=== PATIENT | female | born 1935 | race Caucasian/White ===

== ENCOUNTER 2018-09-20 22:55 | Emergency (ER) | payer MEDICARE, BC ==
[2018-09-20 23:07] VITALS: BP 174/87
[2018-09-21] LABS: ANION GAP 15.3; CHLORIDE,CL 101 mmol/L (101-111); SODIUM,NA 135 mmol/L (135-145)
--- NOTE | 2018-09-21 00:46 | EDM.PDOC ---
ED HPI GENERAL MEDICAL PROBLEM - General Chief Complaint: Cardiovascular Problem Stated Complaint: [id number] BP IS HIGH Time Seen by Provider: 09/20/18 23:10 Source of Information: Reports: Patient History Limitations: Reports: No Limitations - History of Present Illness INITIAL COMMENTS - FREE TEXT/NARRATIVE: ED for eval as BP high at home and dizzy. Notes hx of chronic dizziness, not changed tonight, No weakness, no blurred vision or headache. Has been on BP meds in past and were stopped as BP getting to low. Stated usual BP in 120/s Recent f/u echo. Cardiology appointment scheduled for Thursday 09/21 in for routine visit. - Related Data Allergies Allergy/AdvReac Type Severity Reaction Status Date / Time amoxicillin Allergy Stomach Verified 09/20/18 23:01 Upset Home Meds: Home Meds Balsalazide Disodium 3 tab PO TID 02/02/15 [History] Fluticasone Propionate [Flonase] 1 spray INH ASDIRECTED 02/02/15 [History] Pantoprazole [ProTONIX] 40 mg PO DAILY 02/02/15 [History] Simvastatin 10 mg PO DAILY 02/02/15 [History] Past Medical History HEENT History: Reports: Impaired Vision Cardiovascular History: Reports: Syncope Respiratory History: Reports: Asthma Gastrointestinal History: Reports: GERD, Other (See Below) Other Gastrointestinal History: colitis 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 ED EXAM, GENERAL - Physical Exam Exam: See Below Exam Limited By: No Limitations General Appearance: Alert, Anxious Eye Exam: Bilateral Eye: EOMI Ears: Normal External Exam, Normal TMs Nose: Normal Inspection Throat/Mouth: Normal Inspection, Normal Voice Head: Atraumatic, Normocephalic Neck: Normal Inspection, Full Range of Motion Respiratory/Chest: No Respiratory Distress Cardiovascular: Normal Peripheral Pulses, Regular Rate, Rhythm, Tachycardia (120 's with minimal activity. Decrease to mid 90's to 100 at rest.). No: Systolic Murmur Peripheral Pulses: 2+: Dorsalis Pedis (R) GI/Abdominal: Normal Bowel Sounds Back Exam: Normal Inspection Extremities: Normal Inspection, Normal Range of Motion. No: Pedal Edema Neurological: Alert, Oriented, Normal Cognition, No Motor/Sensory Deficits Psychiatric: Normal Affect, Anxious Skin Exam: Warm, Dry, Intact, Normal Color Course - Vital Signs Last Recorded V/S: Last Vital Signs Temp 97.9 F 09/20/18 23:06 Pulse 111 H 09/20/18 23:06 Resp 16 09/20/18 23:06 BP 174/87 H 09/20/18 23:06 Pulse Ox 97 09/20/18 23:06 - Orders/Labs/Meds Labs: Laboratory Tests 09/20/18 09/20/18 Range/Units 23:35 23:35 WBC 6.7 (5.0-10.0) 10^3/uL RBC 4.52 (4.2-5.4) 10^6/uL Hgb 12.7 (12.0-16.0) g/dL Hct 38.9 (37.0-47.0) % MCV 86.1 (80-100) fL MCH 28.1 (27.0-34.0) pg MCHC 32.6 L (33.0-35.0) g/dL Plt Count 182 (150-450) 10^3/uL Neut % (Auto) 66.0 (42.2-75.2) % Lymph % (Auto) 25.3 (20.5-50.1) % [place] % (Auto) 6.6 (2-8) % Eos % (Auto) 1.5 (1.0-3.0) % Baso % (Auto) 0.6 (0.0-1.0) % Sodium 135 (135-145) mmol/L Potassium 3.3 L (3.6-5.0) mmol/L Chloride 101 (101-111) mmol/L Carbon Dioxide 22.0 (21.0-31.0) mmol/L Anion Gap 15.3 BUN 15 (7-18) mg/dL Creatinine 0.7 (0.6-1.3) mg/dL Est Cr Clr Drug Dosing 45.27 mL/min Estimated GFR (MDRD) > 60 BUN/Creatinine Ratio 21.42 Glucose 142 H (74-105) mg/dL Calcium 9.1 (8.4-10.2) mg/dl Total Bilirubin 0.7 (0.2-1.0) mg/dL AST 28 (10-42) IU/L ALT 15 (10-60) IU/L Alkaline Phosphatase 80 (42-121) IU/L Troponin I < 0.02 (0.00-0.02) ng/ml B-Natriuretic Peptide 58 (0-100) pg/ml Total Protein 7.1 (6.7-8.2) g/dl Albumin 3.8 (3.2-5.5) g/dl Globulin 3.3 Albumin/Globulin Ratio 1.15 - Re-Assessments/Exams Free Text/Narrative Re-Assessment/Exam: BP [id number]'s systolic. Cardiology appointment later this am. . Departure - Departure Time of Disposition: 00:43 Disposition: Home, Self-Care 01 Condition: Good Clinical Impression: Anxiety Hypertensive heart disease Qualifiers: Heart failure presence: without heart failure Qualified Code(s): I11.9 - Hypertensive heart disease without heart failure Instructions: Hypertension, [id number] Referrals: PCP,Unobtain [Primary Care Provider] - Forms: ED Department Discharge Additional Instructions: Rest, light activity Follow up with cardiology as scheduled Urgent follow up if weakness, difficulty speaking, or chest pain Continue usual home medications
== END 2018-09-21 00:55 | disposition home or self-care (01) ==
LOC: DL.ED 22:55
DX: I11.9 Hypertensive heart disease without heart failure (principal); F41.9 Anxiety disorder, unspecified; J45.909 Unspecified asthma, uncomplicated; Z88.1 Allergy status to other antibiotic agents; Z79.899 Other long term (current) drug therapy
CPT/HCPCS: 36415; 71045; 80053; 83880; 84484; 85025; 93005; 99283

== ENCOUNTER 2018-10-10 15:28 | Emergency (ER) | payer MEDICARE, BC ==
[2018-10-10 15:39] VITALS: BP 162/82
[2018-10-10 17:00] LABS: ANION GAP 16.7; CHLORIDE,CL 98 mmol/L (101-111); SODIUM,NA 135 mmol/L (135-145)
--- NOTE | 2018-10-10 17:07 | CR ---
Clinical history: 83-year-old female complaining of chest pain (recent chest radiograph 09/20/2018 read as "no acute findings"). INDICATION: Less than optimal inspiratory effort crowding and accentuating lung markings but... * no new lung mass, hilar lymphadenopathy or focal lobar pneumonia identified in the interval since 20 September 2018. Normal cardiac silhouette without cephalization of flow and new signs of alveolar edema or dependent pleural fluid accumulation. No new lung mass, hilar lymphadenopathy or focal lobar pneumonia. 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 No pneumothorax or free subdiaphragmatic air. CONCLUSION: No acute new cardiopulmonary abnormality.
--- NOTE | 2018-10-10 17:23 | EDM.PDOC ---
ED HPI GENERAL MEDICAL PROBLEM - General Chief Complaint: General Stated Complaint: CHEST PAIN, HIGH BLOOD PRESSURE Time Seen by Provider: 10/10/18 15:45 Source of Information: Reports: Patient, Family, RN, RN Notes Reviewed History Limitations: Reports: No Limitations - History of Present Illness INITIAL COMMENTS - FREE TEXT/NARRATIVE: Pt to ER with her son with c/o dizziness. She states she has been having some dizziness for the past week or so. She has had it in the past at times, but has been worse the past week. She states she was recently started on Sertraline on . Patient denies chest pain, fever, chills, SOB, N/V/D, urinary symptoms. Patient admits to some blurred vision at times. Onset: Gradual - Related Data Allergies Allergy/AdvReac Type Severity Reaction Status Date / Time amoxicillin Allergy Stomach Verified 10/10/18 15:32 Upset Home Meds: Home Meds Balsalazide Disodium 3 tab PO TID 02/02/15 [History] Fluticasone Propionate [Flonase] 1 spray INH ASDIRECTED 02/02/15 [History] Pantoprazole [ProTONIX] 40 mg PO DAILY 02/02/15 [History] Simvastatin 10 mg PO DAILY 02/02/15 [History] Sertraline HCl 25 mg PO DAILY 10/10/18 [History] Past Medical History HEENT History: Reports: Impaired Vision Cardiovascular History: Reports: Syncope Respiratory History: Reports: Asthma Gastrointestinal History: Reports: GERD, Other (See Below) Other Gastrointestinal History: colitis Genitourinary History: Reports: None 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: Musculoskeletal History: Reports: Back Pain, Chronic, Neck Pain, Chronic, Osteoporosis Neurological History: Reports: None Psychiatric History: Reports: Anxiety Endocrine/Metabolic History: Reports: None Hematologic History: Reports: None Immunologic History: Reports: None Oncologic (Cancer) History: Reports: None Dermatologic History: Reports: None - Infectious Disease History Infectious Disease History: Reports: None - Past Surgical History Head Surgeries/Procedures: Reports: None Musculoskeletal Surgical History: Reports: Hip Replacement Social & Family History - Family History Family Medical History: Noncontributory - Tobacco Use Smoking Status *Q: Never Smoker Second Hand Smoke Exposure: No - Caffeine Use Caffeine Use: Reports: Coffee, Tea - Recreational Drug Use Recreational Drug Use: No - Living Situation & Occupation Living situation: Reports: , with Spouse Occupation: Retired ED ROS GENERAL - Review of Systems Review Of Systems: ROS reveals no pertinent complaints other than HPI. ED EXAM, GENERAL - Physical Exam Exam: See Below Exam Limited By: No Limitations General Appearance: Alert, WD/WN, No Apparent Distress Eye Exam: Bilateral Eye: EOMI, Normal Inspection Ears: Normal External Exam, Normal Canal, Hearing Grossly Normal, Normal TMs Nose: Normal Inspection Throat/Mouth: Normal Inspection, Normal Voice, No Airway Compromise Head: Atraumatic, Normocephalic Neck: Normal Inspection, Supple, Non-Tender, Full Range of Motion Respiratory/Chest: No Respiratory Distress, Chest Non-Tender, Decreased Breath Sounds Cardiovascular: Normal Peripheral Pulses, Regular Rate, Rhythm, No Edema, No Gallop, No JVD, No Murmur, No Rub Peripheral Pulses: 2+: Radial (L), Radial (R) GI/Abdominal: Normal Bowel Sounds, Soft, Non-Tender (Female) Exam: Deferred Rectal (Female) Exam: Deferred Back Exam: Normal Inspection, Decreased Range of Motion Extremities: Normal Inspection, Normal Range of Motion, Non-Tender, No Pedal Edema, Normal Capillary Refill Neurological: Alert, Oriented, CN II-XII Intact, Normal Cognition, Normal Gait, Normal Reflexes, No Motor/Sensory Deficits Psychiatric: Normal Mood, Flat Affect Skin Exam: Warm, Dry, Intact, Normal Color, No Rash Lymphatic: No Adenopathy Course - Vital Signs Last Recorded V/S: Last Vital Signs Temp 97.8 F 10/10/18 15:34 Pulse 125 H 10/10/18 15:34 Resp 16 10/10/18 15:34 BP 162/82 H 10/10/18 15:34 Pulse Ox 100 10/10/18 15:34 - Orders/Labs/Meds Orders: Active Orders 24 hr Category Date Time Status EKG Documentation Completion [RC] STAT Care 10/10/18 16:16 Active CULTURE URINE [RM] Stat Lab 10/10/18 17:20 Received Labs: Laboratory Tests 10/10/18 10/10/18 10/10/18 Range/Units 16:33 16:33 17:20 WBC 5.6 (5.0-10.0) 10^3/uL RBC 4.71 (4.2-5.4) 10^6/uL Hgb 13.2 (12.0-16.0) g/dL Hct 40.5 (37.0-47.0) % MCV 86.0 (80-100) fL MCH 28.0 (27.0-34.0) pg MCHC 32.6 L (33.0-35.0) g/dL Plt Count 228 (150-450) 10^3/uL Neut % (Auto) 66.5 (42.2-75.2) % Lymph % (Auto) 23.6 (20.5-50.1) % [place] % (Auto) 7.7 (2-8) % Eos % (Auto) 1.1 (1.0-3.0) % Baso % (Auto) 1.1 H (0.0-1.0) % Sodium 135 (135-145) mmol/L Potassium 3.7 (3.6-5.0) mmol/L Chloride 98 L (101-111) mmol/L Carbon Dioxide 24.0 (21.0-31.0) mmol/L Anion Gap 16.7 BUN 15 (7-18) mg/dL Creatinine 0.7 (0.6-1.3) mg/dL Est Cr Clr Drug Dosing 45.27 mL/min Estimated GFR (MDRD) > 60 BUN/Creatinine Ratio 21.42 Glucose 129 H (74-105) mg/dL Calcium 9.0 (8.4-10.2) mg/dl Total Bilirubin 0.6 (0.2-1.0) mg/dL AST 26 (10-42) IU/L ALT 13 (10-60) IU/L Alkaline Phosphatase 78 (42-121) IU/L Troponin I < 0.02 (0.00-0.02) ng/ml Total Protein 7.4 (6.7-8.2) g/dl Albumin 3.8 (3.2-5.5) g/dl Globulin 3.6 Albumin/Globulin Ratio 1.06 Urine Color Yellow (YELLOW) Urine Appearance Slightly cloudy (CLEAR) Urine pH 7.0 (5.0-9.0) Ur Specific Shiner 1.015 (1.005-1.030) Urine Protein Negative (NEGATIVE) Urine Glucose (UA) Negative (NEGATIVE) Urine Ketones Negative (NEGATIVE) Urine Occult Blood Small H (NEGATIVE) Urine Nitrite Negative (NEGATIVE) Urine Bilirubin Negative (NEGATIVE) Urine Urobilinogen 0.2 (0.2-1.0) mg/dL Ur Leukocyte Esterase Small H (NEGATIVE) Urine RBC 10-20 H /HPF Urine WBC 5-10 H (0-5/HPF) /HPF Ur Epithelial Cells Rare /HPF Amorphous Sediment Rare (0/HPF) /HPF Urine Bacteria Rare (0-FEW/HPF) /HPF Meds: Medications Discontinued Medications Generic Name Dose Route Start Last Admin Trade Name Freq PRN Reason Stop Dose Admin Nitrofurantoin Macrocrystals 100 mg 10/10/18 18:02 10/10/18 18:06 Macrobid PO 10/10/18 18:03 100 mg ONETIME ONE Administration - Radiology Interpretation Free Text/Narrative:: Chest xray: No acute findings See rad report Departure - Departure Time of Disposition: 17:49 Disposition: Home, Self-Care 01 Condition: Fair Clinical Impression: Dizziness UTI (urinary tract infection) Qualifiers: Urinary tract infection type: site unspecified Hematuria presence: without hematuria Qualified Code(s): N39.0 - Urinary tract infection, site not specified - Discharge Information *PRESCRIPTION DRUG MONITORING PROGRAM REVIEWED*: No *COPY OF PRESCRIPTION DRUG MONITORING REPORT IN PATIENT MAGNO: No Instructions: Antibiotic Medicine, Adult, [id number], Urinary Tract Infection , Adult, [id number], Dizziness, [id number] Referrals: Odette Coelho PA [Primary Care Provider] - Forms: ED Department Discharge Additional Instructions: Cut Sertraline in 1/2 until seen by Odette Coelho RX: Macrobid for Urinary tract infection Drink plenty of water Follow up with Odette Coelho in the clinic - My Orders Last 24 Hours: My Active Orders 10/10/18 16:16 EKG Documentation Completion [RC] STAT 10/10/18 17:20 CULTURE URINE [RM] Stat - Assessment/Plan Last 24 Hours: My Active Orders 10/10/18 16:16 EKG Documentation Completion [RC] STAT 10/10/18 17:20 CULTURE URINE [RM] Stat
[2018-10-10] MEDS: Nitrofurantoin Monohydrate/Macrocrystalline 100 MG Cap PO ONE (18:06)
== END 2018-10-10 18:07 | disposition home or self-care (01) ==
LOC: DL.ED 15:28
DX: N39.0 Urinary tract infection, site not specified (principal); Z88.1 Allergy status to other antibiotic agents; Z79.899 Other long term (current) drug therapy
CPT/HCPCS: 36415; 71045; 80053; 81001; 84484; 85025; 87086; 93005; 99284; A9270-GY

== ENCOUNTER 2022-10-03 09:21 | Emergency (ER) | payer MEDICARE, BC ==
[2022-10-03] MEDS ORDERED: Sodium Chloride 0.9% 10 ML Syringe FLUSH PRN (09:37)
[2022-10-03 10:04] VITALS: BP 157/94; PULSE 84
[2022-10-03 10:10] LABS: ANION GAP 17.9 mEq/L (7-13); PTT,PARTIAL THROMBOPLSTIN TIME 25.4 SEC (22.0-34.0)
[2022-10-03] MEDS ORDERED: Furosemide 40 MG/4 ML VIAL IVPUSH ONE (10:49)
== END 2022-10-03 11:15 | disposition home or self-care (01) ==
LOC: DL.ED 09:21
DX: R09.89 Other specified symptoms and signs involving the circulatory and respiratory systems (principal); K21.9 Gastro-esophageal reflux disease without esophagitis; J45.909 Unspecified asthma, uncomplicated; Z88.0 Allergy status to penicillin; Z79.899 Other long term (current) drug therapy
CPT/HCPCS: 36415; 71045; 80053; 83605; 83880; 84484; 85025; 85610; 85730; 93005; 93010; 96374; 99284; 99285-25; J1940; J3490